=== PATIENT | female | born 1990 | race American Indian/Alaskan Native ===

== ENCOUNTER 2021-01-28 13:20 | Emergency (ER) | payer MEDICAID ==
[2021-01-28 13:32] VITALS: BP 102/62
[2021-01-28 14:41] LABS: Basophils % (Auto) 0.5 % (0.0-1.8); Eosinophils # (Auto) 0.3 K/mm3 (0.0-0.4); Eosinophils % (Auto) 3.8 % (0.0-4.3); Hemoglobin 13.2 gm/dl (10.1-14.3); Lymphocytes # (Auto) 1.4 K/mm3 (1.2-5.4); Lymphocytes % (Auto) 20.1 % (13.4-35.0); Mean Corpuscular HGB Conc 33 % (30-34); Mean Corpuscular Volume 90 fl (79-97); Monocytes # (Auto) 0.5 K/mm3 (0.0-0.8); Monocytes % (Auto) 7.1 % (0.0-7.3); Platelet Count 278 K/mm3 (140-440); Red Blood Count 4.47 M/mm3 (3.65-5.03); Red Cell Distribution Width 13.4 % (13.2-15.2)
[2021-01-28 15:04] LABS: Alanine Aminotransferase 19 units/L (7-56); Albumin 3.9 g/dL (3.9-5); BUN/Creatinine Ratio 23; Blood Urea Nitrogen 23 mg/dL (7-17); Calcium 8.8 mg/dL (8.4-10.2); Hemolysis Index 0
--- NOTE | 2021-01-28 17:29 | Emergency Department Report ---
ED General Adult HPI - General Chief complaint: Nausea/Vomiting/Diarrhea Stated complaint: DEHYDRATION Time Seen by Provider: 01/28/21 17:23 Source: patient, EMS Mode of arrival: Ambulatory Limitations: No Limitations - History of Present Illness Initial comments: 30-year-old female with a past medical history of bipolar and schizophrenia presents to the ER today via EMS with complaints of generalized weakness. Patient states that she was walking at home today from the store when she started to feel weak. She states that she called EMS and they brought her to the hospital. She states that she was diagnosed with diabetes several years ago and she was concerned that her weakness was related to her blood sugar. She states that she no longer takes any diabetes medication, she took herself off several years ago. She denies any nausea, vomiting or diarrhea. She denies any chest pain, shortness of breath or abdominal pain. She denies any near syncope or syncopal episodes, headache or dizziness. She states that she now feels better since she has been in the ER. She states that her last menstrual cycle was December 08 and was normal. MD Complaint: Feeling weak -: Gradual (today) Severity scale (0 -10): 0 - Related Data Home Medications Medication Instructions Recorded Confirmed Last Taken buPROPion XL [Wellbutrin Xl] 150 mg PO QAM 07/20/13 07/20/13 Unknown Allergies Allergy/AdvReac Type Severity Reaction Status Date / Time No Known Allergies Allergy Unverified 07/20/13 11:07 ED Review of Systems ROS: Stated complaint: DEHYDRATION Other details as noted in HPI Comment: All other systems reviewed and negative Constitutional: denies: chills, fever Eyes: denies: eye pain, eye discharge, vision change ENT: denies: ear pain, throat pain, dental pain, hearing loss, epistaxis, congestion Respiratory: denies: cough, shortness of breath, SOB with exertion, SOB at rest, wheezing Cardiovascular: denies: chest pain, palpitations, dyspnea on exertion, edema, syncope, paroxysmal nocturnal dyspnea Gastrointestinal: denies: abdominal pain, nausea, vomiting, diarrhea, constip ation, hematemesis, hematochezia Genitourinary: denies: urgency, dysuria, frequency, hematuria, discharge, abnormal menses, dyspareunia Musculoskeletal: denies: back pain, joint swelling, arthralgia Skin: denies: rash, lesions, change in color, change in hair/nails, pruritus Neurological: weakness. denies: headache, numbness, paresthesias, confusion, abnormal gait, vertigo Psychiatric: denies: anxiety, depression, auditory hallucinations, visual hallucinations, homicidal thoughts, suicidal thoughts Hematological/Lymphatic: denies: easy bleeding, easy bruising, swollen glands ED Past Medical Hx - Past Medical History Hx Hypertension: Yes Hx Psychiatric Treatment: Yes Hx Asthma: Yes Additional medical history: pt states she does not take meds for her BP or asthma - Surgical History Additional Surgical History: 2 c-sections - Social History Substance Use Type: Alcohol, Cocaine, Marijuana, Methamphetamines - Medications Home Medications: Home Medications Medication Instructions Recorded Confirmed Last Taken Type buPROPion XL [Wellbutrin Xl] 150 mg PO QAM 07/20/13 07/20/13 Unknown History ED Physical Exam - General Limitations: No Limitations General appearance: alert, in no apparent distress - Head Head exam: Present: atraumatic, normocephalic, normal inspection - Eye Eye exam: Present: normal appearance, PERRL, EOMI Pupils: Present: normal accommodation - ENT ENT exam: Present: normal exam, mucous membranes moist, TM's normal bilaterally - Neck Neck exam: Present: normal inspection, full ROM - Respiratory Respiratory exam: Present: normal lung sounds bilaterally. Absent: respiratory distress, wheezes, rales, rhonchi - Cardiovascular Cardiovascular Exam: Present: regular rate, normal rhythm, normal heart sounds - GI/Abdominal GI/Abdominal exam: Present: soft. Absent: distended, tenderness, guarding, rebound - Neurological Exam Neurological exam: Present: alert, oriented X3, CN II-XII intact, normal gait - Psychiatric Psychiatric exam: Present: normal affect, normal mood - Skin Skin exam: Present: intact ED Course Vital Signs 01/28/21 13:29 Temperature 98.5 F Pulse Rate 88 Respiratory 16 Rate Blood Pressure 102/62 [Left] O2 Sat by Pulse 97 Oximetry ED Medical Decision Making - Lab Data Result diagrams: 01/28/21 14:18 01/28/21 14:18 - Medical Decision Making All labs reviewed, CBC shows no acute abnormalities. CMP shows a normal glucose at 96, did have mild hyperchloremia measuring at 111, and her BUN was mildly elevated at 21 but creatinine was normal and her anion gap was normal, remaining CMP was unremarkable. Patient reports that she is feeling much better since she has been in the ER which has been for the past 4 hours. She states that she is ready to go. Patient is well-appearing, nontoxic and does not appear to be in any acute distress. She does not appear significantly dehydrated. She is mentally stable, neurologically intact and with a normal gait in the ER. At this time there is no indication for any additional testing/imaging, admission or specialist consult. Encourage patient to drink more water especially if she is going to go outside in the heat. Recommend that she follow-up with her primary care doctor but she understands to return to the ER if her symptoms worsens. Patient was stable at time of discharge. Critical care attestation.: If time is entered above; I have spent that time in minutes in the direct care of this critically ill patient, excluding procedure time. ED Disposition Clinical Impression: Generalized weakness Disposition: DC-01 TO HOME OR SELFCARE Is pt being admited?: No Does the pt Need Aspirin: No Condition: Stable Instructions: Weakness, [id number] Additional Instructions: Drink lots of water especially if going outside. Follow up closely with your PCP. Return to ED if worse. Referrals: [facility] [Provider Group] - 3-5 Days Time of Disposition: 17:30
== END 2021-01-28 17:42 | disposition home or self-care (01) ==
LOC: ED 13:20
DX: R53.1 Weakness (principal); I10 Essential (primary) hypertension; J45.909 Unspecified asthma, uncomplicated; F12.90 Cannabis use, unspecified, uncomplicated; F15.90 Other stimulant use, unspecified, uncomplicated; F14.90 Cocaine use, unspecified, uncomplicated; Z98.890 Other specified postprocedural states; Z79.899 Other long term (current) drug therapy
CPT/HCPCS: 36415; 80053; 85025